=== PATIENT | male | born 1955 | race Caucasian/White ===

== ENCOUNTER 2021-11-19 12:14 | Inpatient (IN) | payer OTHER, MEDICARE ==
[~2021-11-19] VITALS: Ht 170.2 cm; Wt 91.9 kg
[2021-11-19 14:57] LABS: Basophils # (auto) 0 10 ^3/uL (0-0.2); Basophils % (auto) 0.5 % (0.0-2.0); Eosinophils # (auto) 0 10 ^3/uL (0-0.8); Eosinophils % (auto) 0.7 % (0.0-7.0); Hematocrit 47.1 % (41.0-53.0); Hemoglobin 16.4 g/dL (13.5-17.5); Lymphocytes # (auto) 1.7 10 ^3/uL (0.4-5.4); Lymphocytes % (auto) 25.6 % (10.0-50.0); Mean Corpuscular Hemoglobin 32.4 pg (28.0-32.0); Mean Corpuscular Hgb Conc. 34.8 g/dL (32.0-36.0); Monocytes # (auto) 0.6 10 ^3/uL (0-1.3); Monocytes % (auto) 8.4 % (0.0-12.0); Neutrophils # (auto) 4.3 10 ^3/uL (1.6-8.6); Neutrophils % (auto) 64.8 % (37.0-80.0); Red Blood Cells 5.07 10^6/uL (4.5-5.90); White Blood Cell 6.6 10^3/uL (4.4-10.8)
[2021-11-19 15:12] LABS: Albumin 4.2 g/dL (3.4-5.0)
[2021-11-19 15:19] LABS: Bilirubin, Total 0.6 mg/dL (0.2-1.0); Total Protein 7.6 g/dL (6.4-8.2)
[2021-11-19] MEDS ORDERED: ASPirin 81 mg TAB PO ONE (19:45)
[2021-11-19] MEDS ORDERED: DEXTROSE (50%) 50ML SYRG IV PRN (21:15)
[2021-11-19] MEDS: SODIUM CHLORIDE 0.9% 1,000 ML IV SCH (22:45)
[2021-11-20] VITALS (7 sets, daily range): BP systolic 128–152; BP diastolic 67–85
[2021-11-20] MEDS: ACCU-CHEK COMFORT CURVE STRIP VI SCH ×5 (00:08→23:26)
[2021-11-20] MEDS: ATORVASTATIN 20 MG TAB PO SCH ×2 (00:08→21:50)
[2021-11-20] MEDS: InsuLIN REG 1unit/0.01ml Soln (100units/ml) SC SCH ×5 (00:13→23:26)
[2021-11-20 06:36] LABS: Cholesterol 117 mg/dL (< 200)
[2021-11-20 06:40] LABS: HDL Cholesterol 40 mg/dL (40-59); Triglycerides 124 mg/dL (< 150)
[2021-11-20] MEDS ORDERED: EMPA1TAB3 PO (06:46)
[2021-11-20] MEDS ORDERED: VALS1TAB57 PO (06:46)
[2021-11-20] MEDS ORDERED: ATOR20TA50 PO (06:46)
[2021-11-20] MEDS: SODIUM CHLORIDE 0.9% 1,000 ML IV SCH ×2 (09:34→17:15)
[2021-11-20] MEDS: ENOXAPARIN SOD 40 MG/0.4 ML SYRINGE SC SCH (09:36)
[2021-11-20] MEDS: LOSARTAN POTASSIUM 50 MG TAB PO SCH (09:47)
[2021-11-20] MEDS ORDERED: ASPirin 325 MG TAB PO SCH (10:00)
[2021-11-20] MEDS: ASPirin 325 MG TAB PO SCH (23:25)
[2021-11-21] MEDS: SODIUM CHLORIDE 0.9% 1,000 ML IV SCH ×2 (03:16→13:15)
[2021-11-21] MEDS: ACCU-CHEK COMFORT CURVE STRIP VI SCH ×2 (06:00→11:59)
[2021-11-21] MEDS: InsuLIN REG 1unit/0.01ml Soln (100units/ml) SC SCH ×2 (06:00→12:07)
[2021-11-21 09:00] VITALS: BP 122/70
[2021-11-21] MEDS ORDERED: CLOPIDOGREL BISULFATE 75 MG TAB PO SCH (10:00)
[2021-11-21] MEDS ORDERED: CLOP75TA28 PO (10:04)
[2021-11-21] MEDS ORDERED: ASPI-498 OR (10:04)
[2021-11-21] MEDS: ENOXAPARIN SOD 40 MG/0.4 ML SYRINGE SC SCH (10:10)
[2021-11-21] MEDS: ASPirin 325 MG TAB PO SCH (10:11)
[2021-11-21] MEDS: LOSARTAN POTASSIUM 50 MG TAB PO SCH (10:11)
[2021-11-21 12:41] VITALS: BP 122/70
[2021-11-21] MEDS ORDERED: LISINOPRIL 20 MG TAB PO ONE (13:00)
[2021-11-22] MEDS ORDERED: LISINOPRIL 20 MG TAB PO SCH (10:00)
== END 2021-11-21 13:50 | disposition home or self-care (01) | DRG 65 ==
LOC: ER 12:25 → TELE 21:10 → TELE-WESTW 23:30
PROVIDERS: ADMIT Internal Medicine; ATTEND Family Medicine
DX: I63.9 Cerebral infarction, unspecified (principal); G81.91 Hemiplegia, unspecified affecting right dominant side; E66.9 Obesity, unspecified; E11.65 Type 2 diabetes mellitus with hyperglycemia; E78.00 Pure hypercholesterolemia, unspecified; E78.5 Hyperlipidemia, unspecified; Z20.822 Contact with and (suspected) exposure to COVID-19; I10 Essential (primary) hypertension; Z68.31 Body mass index [BMI] 31.0-31.9, adult; Z79.82 Long term (current) use of aspirin; Z79.899 Other long term (current) drug therapy; Z82.3 Family history of stroke; Z82.49 Family history of ischemic heart disease and other diseases of the circulatory system
CPT/HCPCS: 36415; 70450; 70551; 71045; 80053; 80061; 82962; 83036; 83090; 84484; 85025; 85652; 87426; 93005; 93306; 93886; G0378; J1815